=== PATIENT | female | born 1980 | race Two or more races ===

== ENCOUNTER 2021-12-29 18:55 | Emergency (ER) | payer OTHER ==
[~2021-12-29] VITALS: Ht 165.1 cm; Wt 74.8 kg
[2021-12-30] MEDS ORDERED: ALBUTEROL2.5 MG/3 M IH (00:36)
[2021-12-30] MEDS ORDERED: ZYNCOF 20-400120 ML PO (00:36)
== END 2021-12-30 02:07 ==
LOC: ER 18:55
DX: U07.1 COVID-19 (principal)